=== PATIENT | female | born 1960 | race Caucasian/White ===

== ENCOUNTER → 2018-11-07 | Outpatient (CLI) | payer OTHER ==
[~2018-11-07] MED LIST: LORTAB PO
== END ==
LOC: RAD 16:26
DX: R06.02 Shortness of breath (principal); F17.200 Nicotine dependence, unspecified, uncomplicated; R63.4 Abnormal weight loss

== ENCOUNTER → 2018-11-28 | Outpatient (CLI) | payer OTHER | LOC: CAT 07:34 | DX: J43.9 Emphysema, unspecified (principal); R63.4 Abnormal weight loss; F17.200 Nicotine dependence, unspecified, uncomplicated ==

== ENCOUNTER → 2018-12-30 | Outpatient (CLI) | payer OTHER | LOC: CAT 09:07 | DX: K46.9 Unspecified abdominal hernia without obstruction or gangrene (principal); I70.0 Atherosclerosis of aorta; R19.7 Diarrhea, unspecified; Z90.710 Acquired absence of both cervix and uterus ==

== ENCOUNTER → 2019-03-17 | Outpatient (CLI) | payer OTHER | LOC: MRI 07:20 | DX: M51.16 Intervertebral disc disorders with radiculopathy, lumbar region (principal); M48.062 Spinal stenosis, lumbar region with neurogenic claudication ==

== ENCOUNTER → 2019-09-29 | Outpatient (CLI) | payer OTHER | LOC: ULTRA 07:44 → EDSTATUS 18:01 | DX: R10.11 Right upper quadrant pain (principal); I25.10 Atherosclerotic heart disease of native coronary artery without angina pectoris ==